=== PATIENT | male | born 2000 | race Two or more races ===

== ENCOUNTER 2024-10-19 21:08 | Emergency (ER) | payer MEDICAID ==
[~2024-10-19] VITALS: Ht 185.4 cm; Wt 80.7 kg
[2024-10-19 21:10] VITALS: BP 114/71
[2024-10-19] MEDS ORDERED: KETO10TA2 PO (22:57)
[2024-10-19] MEDS ORDERED: KETOROLAC TROMETHAMINE 30 MG INJ ONE (22:58)
[2024-10-19] MEDS: KETOROLAC TROMETHAMINE 30 MG INJ IM ONE (23:00)
[2024-10-19 23:12] VITALS: BP 114/71; O2SAT 98
== END 2024-10-19 23:11 | disposition home or self-care (01) ==
LOC: ER 21:22
DX: S33.5XXA Sprain of ligaments of lumbar spine, initial encounter (principal); S13.9XXA Sprain of joints and ligaments of unspecified parts of neck, initial encounter; W01.0XXA Fall on same level from slipping, tripping and stumbling without subsequent striking against object, initial encounter; Y93.89 Activity, other specified; Y92.89 Other specified places as the place of occurrence of the external cause; Y99.8 Other external cause status
CPT/HCPCS: 99285; 70450; 72125; 72128; 72131; 96372; J1885; A4606; A4663